=== PATIENT | male | born 1950 | race Caucasian/White ===

== ENCOUNTER 2025-04-02 19:05 | Emergency (ER) | payer OTHER ==
[2025-04-02 19:14] VITALS: BMI 25.1
[2025-04-02] MEDS ORDERED: ADENOSINE 6 MG/2 ML VIAL IVPUSH ONE (19:23)
[2025-04-02] MEDS ORDERED: MIDAZOLAM HCL 2 MG/2 ML SINGLE DOSE VIAL ONE (19:29)
[2025-04-02] MEDS ORDERED: AMIODARONE HCL 150 MG/3 ML VIAL ONE (19:44)
[2025-04-02] MEDS: ADENOSINE 6 MG/2 ML VIAL IVPUSH ONE ×2 (19:44)
[2025-04-02] MEDS: MIDAZOLAM HCL 2 MG/2 ML SINGLE DOSE VIAL IVPUSH ONE (19:44)
[2025-04-02] MEDS: AMIODARONE IN DEXTROSE,ISO-OSM 360 MG/200 ML BAG IV SCH (19:50)
[2025-04-02] MEDS: AMIODARONE HCL 150 MG/3 ML VIAL IVPUSH ONE (19:50)
[2025-04-02 20:07] VITALS: TEMP 97.9
[2025-04-02 20:38] LABS: ABSOLUTE IMMATURE GRANULOCYTES 0.04 x10^3/uL (0.0-0.031); BASOPHILS # 0.05 x10^3/uL (0.01-0.08); EOSINOPHIL % 2.0 % (0.8-7.0); EOSINOPHILS # 0.17 x10^3/uL (0.04-0.54); MCHC 34.0 g/dl (32.3-36.5); MEAN CELL VOLUME 92.9 fl (79.0-92.2); MEAN PLT VOLUME 11.3 fl (9.4-12.4); MONOCYTE # 0.71 x10^3/uL (0.30-0.82); MONOCYTE % 8.2 % (5.3-12.2); RDW 15.2 % (12.2-16.6)
[2025-04-02 20:45] LABS: INR 2.09 (0.83-1.09); PROTHROMBIN TIME (PATIENT) 23.0 SEC (9.7-13.0)
[2025-04-02 20:48] LABS: ACTIVATED PTT 35.7 SECONDS (25.2-36.5)
[2025-04-02 20:59] LABS: LACTIC ACID 3.4 mmol/L (0.4-2.0)
[2025-04-02 21:08] LABS: GLUCOSE,RANDOM 168 mg/dL (74-106)
[2025-04-02 21:09] LABS: TOT PROT 7.8 g/dl (6.4-8.2)
[2025-04-02 21:10] LABS: CO2 26 mmol/L (21-32)
[2025-04-02 21:11] LABS: ALK PHOS 92 U/L (40-150)
[2025-04-02 21:14] LABS: CREATININE 1.15 mg/dL (0.55-1.3); SGOT/AST 56 U/L (5-34); SGPT/ALT 41 U/L (0-55)
[2025-04-02] MEDS ORDERED: KCL 10 MEQ IVPB 10 MEQ/100 ML INFUS.BAG IVPB ONE ×2 (21:31→22:22)
[2025-04-02] MEDS: KCL 10 MEQ IVPB 10 MEQ/100 ML INFUS.BAG IVPB SCH (21:31)
[2025-04-02 22:26] VITALS: BP 96/72; PULSE 61; RESP 17
[2025-04-03] MEDS ORDERED: AMIODARONE IN DEXTROSE,ISO-OSM 360 MG/200 ML BAG IV SCH (02:00)
== END 2025-04-02 22:52 | disposition short-term general hospital (02) ==
LOC: JER 19:05
PROC: 3E033GC Introduction of Other Therapeutic Substance into Peripheral Vein, Percutaneous Approach (ICD-10-PCS; principal; 2025-04-02)
PROC: 3E033GC Introduction of Other Therapeutic Substance into Peripheral Vein, Percutaneous Approach (ICD-10-PCS; 2025-04-02)
PROC: 3E033GC Introduction of Other Therapeutic Substance into Peripheral Vein, Percutaneous Approach (ICD-10-PCS; 2025-04-02)
DX: I47.10 Supraventricular tachycardia, unspecified (principal); R06.02 Shortness of breath; R07.89 Other chest pain; R00.2 Palpitations
CPT/HCPCS: 36415; 71045-TC-FY; 80053; 82550; 82962; 83605; 83735; 84100; 84443; 84484; 85025; 85610; 85730; 87637-QW; 93005; 93010; 99291